=== PATIENT | male | born 1980 | race Caucasian/White ===

== ENCOUNTER 2020-06-16 09:18 | Emergency (ER) | payer MEDICARE, MEDICAID ==
[~2020-06-16] VITALS: Ht 175.3 cm; Wt 83.0 kg
[2020-06-16] MEDS ORDERED: OLANZapine 2.5MG tablet PO STA (10:08)
[2020-06-16] MEDS ORDERED: OLANZAPINE 5 MG TABLET PO STA (10:10)
[2020-06-16 10:37] LABS: BASOPHILS # (AUTO) 0.1 X10'3 (0-0.2); BASOPHILS % (AUTO) 1.2 % (0-1); EOSINOPHILS # (AUTO) 0.1 X10'3 (0-0.9); EOSINOPHILS % (AUTO) 0.9 % (0-6); HEMATOCRIT 45.3 % (42.0-52.0); HEMOGLOBIN 15.7 g/dl (14.0-17.9); LYMPHOCYTES # (AUTO) 1.6 X10'3 (1.1-4.8); LYMPHOCYTES % (AUTO) 20.4 % (21-51); MEAN CORPUSCULAR HEMOGLOBIN 30.3 PG (27.0-31.0); MEAN CORPUSCULAR HGB CONC 34.6 g/dL (33.0-36.5); MEAN CORPUSCULAR VOLUME 87.4 FL (78-98); MEAN PLATELET VOLUME 7.4 FL (7.4-10.4); MONOCYTES # (AUTO) 0.7 X10'3 (0-0.9); MONOCYTES % (AUTO) 9.1 % (2-12); NEUTROPHILS # (AUTO) 5.4 X10'3 (1.8-7.7); NEUTROPHILS % (AUTO) 68.4 % (42-75); PLATELET COUNT 460 X10'3 (140-440); RED BLOOD COUNT 5.18 X10'6 (4.70-6.10); RED CELL DISTRIBUTION WIDTH 12.6 % (11.5-14.5); WHITE BLOOD COUNT 7.9 X10'3 (4.5-11.0)
--- NOTE | 2020-06-16 10:40 | NUR ---
Received patient at 1015. Patient ambulated independently to bed 20 with PCT. Pt presents as paranoid with wide-eyes and hypervigilent. Pt endorses AH and possibly VH. Pt is restless moving around on bed. Pt states "do you hear that?" Desktop Support Associate explaines there are other patients and a T.V that is on. Pt was administered 5mg Olanzpine, will continue to monitor.
[2020-06-16 10:42] LABS: CLARITY,URINE CLEAR (Clear); COLOR,URINE YELLOW (Yellow); GLUCOSE, URINE NEGATIVE (Neg); KETONES,URINE 40 mg/dl (Neg); LEUKOCYTE ESTERASE ,URINE NEGATIVE (Neg); NITRITES, URINE NEGATIVE (Neg); OCCULT BLOOD,URINE NEGATIVE (Neg); PROTEIN,URINE NEGATIVE (Neg); UROBILINOGEN,URINE >=8.0 E.U/dL (0.2-1.0)
[2020-06-16 10:45] LABS: UA COLLECTION TYPE CLN CATCH MIDSTREAM
[2020-06-16 10:46] LABS: URINE AMPHETAMINE SCREEN NEGATIVE (Neg); URINE BARBITUATE SCREEN NEGATIVE (Neg); URINE BENZODIAZEPINES SCREEN NEGATIVE (Neg); URINE CANNABINOID SCREEN POSITIVE (Neg); URINE COCAINE SCREEN NEGATIVE (Neg); URINE METHADONE SCREEN NEGATIVE (Neg); URINE OPIATE SCREEN NEGATIVE (Neg); URINE PHENCYCLIDINE SCREEN NEGATIVE (Neg)
[2020-06-16 10:50] LABS: ALANINE AMINOTRANSFERASE 28 U/L (12-78); ALBUMIN 4.7 G/DL (3.4-5.0); ALBUMIN/GLOBULIN RATIO 1.3 (1.1-1.5); ALKALINE PHOSPHATASE 78 IU/L (46-116); ANION GAP 11 (8-16); ASPARTATE AMINO TRANSFERASE 25 U/L (10-37); BILIRUBIN,TOTAL 1.1 MG/DL (0.1-1.0); BLOOD UREA NITROGEN 9 MG/DL (7-18); BUN/CREATININE RATIO 9.8 (5.4-32.0); CALCIUM 9.6 MG/DL (8.5-10.1); CHLORIDE 101 MMOL/L (99-107); CREATININE 0.92 MG/DL (0.60-1.10); GLUCOSE 115 MG/DL (70-104); SODIUM 140 MMOL/L (135-145); TOTAL CARBON DIOXIDE 28.5 MMOL/L (24-32); TOTAL PROTEIN 8.4 G/DL (6.4-8.2); eGFR > 90 ML/MIN
[2020-06-16 11:19] LABS: ETHANOL < 0.010 GM/DL (0.0-0.010)
--- NOTE | 2020-06-16 11:24 | NUR ---
PACKET FAXED TO [facility]
--- NOTE | 2020-06-16 12:38 | NUR ---
Patient lying on bed, having conversation with self, animated with hands. Pt has been calm with admit process answering questions. Pt has a difficult time tracking time line of events. Pt unsure of the last dose of his medication and what medication he is on. Pt mumbles incoherently under his breathe, but is talking as if to someone. Pt stares off into space and squints his eyes of if looking at something. Pt endores AH "Yes, well I don't know..."what did you say." Pt continues to be hypervigilant about his surrounding. Spoke with patient's mother Luciana ([phone]). Pt's father took Suboxone away about 5 days ago r/t the start of bizarre behaviors and paranoia. Pt was seeing movies on the wall, thinking the T.V was talking to him and thought parents were trying to kill him. Pt also had not been sleeping. Unsure of exact start date of Suboxone.
--- NOTE | 2020-06-16 13:13 | NUR ---
Patient ate 100% of lunch.
[2020-06-16] MEDS ORDERED: SERT-433 PO (13:36)
[2020-06-16] MEDS ORDERED: LITH300C PO (13:36)
[2020-06-16] MEDS ORDERED: HYDR50TA65 PO (13:36)
[2020-06-16] MEDS ORDERED: LURA60TA PO (13:36)
[2020-06-16] MEDS ORDERED: PROP20TA6 PO (13:36)
[2020-06-16] MEDS ORDERED: ATOM25CA6 PO (13:36)
--- NOTE | 2020-06-16 15:16 | NUR ---
Patient sleeping comfortably in supine positioni. Audible snoring sounds, no distress noted. Received order for [place] level.
[2020-06-16] MEDS ORDERED: propranolol 10mg tablet PO PRN (15:35)
[2020-06-16] MEDS ORDERED: hydrOXYzine 25 MG tablet PO PRN (15:35)
--- NOTE | 2020-06-16 17:47 | NUR ---
Patient continues to sleep, no distress noted. Audible breath sounds noted. Respirations even and unlabored. Pt has not slept for 5 days. Olanzipine 5 mg was administered at 1100.
[2020-06-16 18:04] VITALS: BP 135/84
[2020-06-16] MEDS ORDERED: LORazepam 1 MG tablet PO ONE (18:55)
--- NOTE | 2020-06-16 19:08 | NUR ---
Pt mood labile crying frequently. Attempt to leave unit was redirectable. Security called for standby. 2mg x1 ativan PO order obtained and given. Pt sitting quietly in bed at this time.
[2020-06-16] MEDS ORDERED: lurasidone 60mg tablet PO SCH (21:00)
[2020-06-17] MEDS ORDERED: sertraline 50mg tablet PO SCH (08:00)
[2020-06-17] MEDS ORDERED: BUPR1FIL20 SL (11:56)
== END 2020-06-16 20:17 ==
LOC: ER 09:18
DX: R45.851 Suicidal ideations (principal); Z20.822 Contact with and (suspected) exposure to COVID-19; G47.00 Insomnia, unspecified; J45.909 Unspecified asthma, uncomplicated; F15.90 Other stimulant use, unspecified, uncomplicated; Z72.89 Other problems related to lifestyle; Z56.0 Unemployment, unspecified; Z79.899 Other long term (current) drug therapy
CPT/HCPCS: 36415; 80053; 80178; 80305; 80320; 81003; 85025; 87426; 99285; Q0177

== ENCOUNTER 2021-05-04 06:49 | Emergency (ER) | payer BC, MEDICAID ==
[~2021-05-04] VITALS: Ht 175.3 cm; Wt 77.3 kg
[~2021-05-04 06:49] MED LIST: ATI1T PO; EFF37.5XRC PO; HYDR50TA65 PO; LITH300C PO; LURA20TA PO; PROP20TA6 PO; TRAZ-251 PO
--- NOTE | 2021-05-04 08:51 | NUR ---
0945 Contacted kitchen for supplies for soda and sugar enema. Everything else at bedside.
--- NOTE | 2021-05-04 09:23 | NUR ---
Enema started. Pt unable to tolerate more than 250ml, on bedside commode to attempt BM. Will continue until 1000ml inserted.
--- NOTE | 2021-05-04 10:02 | NUR ---
Pt enema complete. Pt on bedside commode. Pt states he feels like he is cleaned out. MD aware.
--- NOTE | 2021-05-04 10:23 | NUR ---
Pt done. Vitals refreshed.
[2021-05-04 11:11] VITALS: BP 113/72
== END 2021-05-04 11:12 | disposition home or self-care (01) ==
LOC: ER 06:50
DX: K59.00 Constipation, unspecified (principal); R11.0 Nausea; R10.13 Epigastric pain; J45.909 Unspecified asthma, uncomplicated; F31.9 Bipolar disorder, unspecified; F20.9 Schizophrenia, unspecified; F15.90 Other stimulant use, unspecified, uncomplicated; F11.90 Opioid use, unspecified, uncomplicated; F19.90 Other psychoactive substance use, unspecified, uncomplicated; Z98.890 Other specified postprocedural states; Z72.89 Other problems related to lifestyle; Z56.0 Unemployment, unspecified; Z79.899 Other long term (current) drug therapy
CPT/HCPCS: 74019; 99284

== ENCOUNTER 2021-07-18 15:15 | Emergency (ER) | payer BC, MEDICAID ==
[~2021-07-18] VITALS: Ht 172.7 cm; Wt 73.7 kg
[2021-07-18 17:30] VITALS: BP 113/79
== END 2021-07-18 17:37 | disposition home or self-care (01) ==
LOC: ER 15:15
DX: J06.9 Acute upper respiratory infection, unspecified (principal); R42 Dizziness and giddiness; J45.909 Unspecified asthma, uncomplicated; F11.90 Opioid use, unspecified, uncomplicated; F15.90 Other stimulant use, unspecified, uncomplicated; Z56.0 Unemployment, unspecified; Z72.89 Other problems related to lifestyle; Z79.899 Other long term (current) drug therapy
CPT/HCPCS: 87502; 87503; 99283

== ENCOUNTER 2021-10-06 02:42 | Emergency (ER) | payer BC, MEDICAID ==
[~2021-10-06] VITALS: Ht 172.7 cm; Wt 72.7 kg
[2021-10-06 03:00] VITALS: BP 117/79
[2021-10-06 03:20] LABS: BASOPHILS # (AUTO) 0.1 X10'3 (0-0.2); BASOPHILS % (AUTO) 1.6 % (0-1); EOSINOPHILS # (AUTO) 0.3 X10'3 (0-0.9); EOSINOPHILS % (AUTO) 6.5 % (0-6); HEMATOCRIT 35.9 % (42.0-52.0); HEMOGLOBIN 12.6 g/dl (14.0-17.9); LYMPHOCYTES # (AUTO) 1.7 X10'3 (1.1-4.8); LYMPHOCYTES % (AUTO) 40.3 % (21-51); MEAN CORPUSCULAR VOLUME 85.7 FL (78-98); MEAN PLATELET VOLUME 7.2 FL (7.4-10.4); MONOCYTES # (AUTO) 0.5 X10'3 (0-0.9); MONOCYTES % (AUTO) 11.9 % (2-12); NEUTROPHILS # (AUTO) 1.7 X10'3 (1.8-7.7); NEUTROPHILS % (AUTO) 39.7 % (42-75); PLATELET COUNT 294 X10'3 (140-440); RED BLOOD COUNT 4.19 X10'6 (4.70-6.10); WHITE BLOOD COUNT 4.2 X10'3 (4.5-11.0)
[2021-10-06 03:35] LABS: ALANINE AMINOTRANSFERASE 22 U/L (12-78); ALBUMIN 3.9 G/DL (3.4-5.0); ALBUMIN/GLOBULIN RATIO 1.2 (1.1-1.5); ALKALINE PHOSPHATASE 92 IU/L (46-116); ANION GAP 6 (8-16); ASPARTATE AMINO TRANSFERASE 22 U/L (10-37); BILIRUBIN,TOTAL 0.4 MG/DL (0.1-1.0); BLOOD UREA NITROGEN 16 MG/DL (7-18); BUN/CREATININE RATIO 16.3 (5.4-32.0); CALCIUM 9.1 MG/DL (8.5-10.1); CHLORIDE 106 MMOL/L (99-107); CREATININE 0.98 MG/DL (0.60-1.10); GLUCOSE 93 MG/DL (70-104); POTASSIUM 4.2 MMOL/L (3.5-5.1); SODIUM 143 MMOL/L (135-145); TOTAL PROTEIN 7.2 G/DL (6.4-8.2); eGFR 84 ML/MIN
[2021-10-06 03:38] LABS: LIPASE 60 U/L (73-393)
== END 2021-10-06 05:38 | disposition left against medical advice (07) ==
LOC: ER 02:43
DX: R07.9 Chest pain, unspecified (principal); Z53.21 Procedure and treatment not carried out due to patient leaving prior to being seen by health care provider
CPT/HCPCS: 71045; 80053; 83690; 84484; 85025

== ENCOUNTER 2021-10-06 13:42 | Emergency (ER) | payer BC, MEDICAID ==
[~2021-10-06] VITALS: Ht 172.7 cm; Wt 73.0 kg
[2021-10-06 13:53] VITALS: BP 127/83
== END 2021-10-06 14:41 | disposition home or self-care (01) ==
LOC: ER 13:43
DX: F41.9 Anxiety disorder, unspecified (principal); R07.89 Other chest pain; J45.909 Unspecified asthma, uncomplicated; F31.9 Bipolar disorder, unspecified; F15.20 Other stimulant dependence, uncomplicated; F11.90 Opioid use, unspecified, uncomplicated; Z87.891 Personal history of nicotine dependence; Z56.0 Unemployment, unspecified
CPT/HCPCS: 93005; 99283

== ENCOUNTER 2022-10-17 11:23 | Emergency (ER) | payer BC, MEDICAID ==
[~2022-10-17] VITALS: Ht 172.7 cm; Wt 75.0 kg
[~2022-10-17 11:23] MED LIST changes: -LURA20TA PO; +LURA20TA8 PO
[2022-10-17 11:33] VITALS: BP 109/79; PULSE 68; RESP 18; TEMP 98.1; O2SAT 100
[2022-10-17] MEDS ORDERED: bisacodyl 5mg tablet.DR PO PRN (12:40)
[2022-10-17] MEDS ORDERED: magnesium citrate 296ml oral solution PO ONE (12:40)
[2022-10-17] MEDS ORDERED: DOCU-148 PO (12:43)
[2022-10-17] MEDS ORDERED: POLY119P2 PO (12:43)
[2022-10-17] MEDS ORDERED: BISA10SU11 RC (12:43)
== END 2022-10-17 13:12 | disposition home or self-care (01) ==
LOC: ER 11:23
DX: K59.00 Constipation, unspecified (principal); J45.909 Unspecified asthma, uncomplicated; F31.9 Bipolar disorder, unspecified; F15.90 Other stimulant use, unspecified, uncomplicated; Z79.899 Other long term (current) drug therapy
CPT/HCPCS: 74018; 99283

== ENCOUNTER 2023-03-17 16:52 | Emergency (ER) | payer BC, MEDICAID ==
[~2023-03-17] VITALS: Ht 175.3 cm; Wt 89.2 kg
[~2023-03-17 16:52] MED LIST changes: +BISA10SU11 RC; +DOCU-148 PO; -EFF37.5XRC PO; +POLY119P2 PO; +VENL37.59 PO
[2023-03-17 17:24] LABS: BASOPHILS % (AUTO) 0.6 % (0-1); EOSINOPHILS # (AUTO) 0.2 X10'3 (0-0.9); EOSINOPHILS % (AUTO) 3.8 % (0-6); HEMATOCRIT 38.4 % (42.0-52.0); LYMPHOCYTES # (AUTO) 2.1 X10'3 (1.1-4.8); LYMPHOCYTES % (AUTO) 35.5 % (21-51); MEAN CORPUSCULAR HEMOGLOBIN 29.6 PG (27.0-31.0); MEAN CORPUSCULAR HGB CONC 33.9 g/dL (33.0-36.5); MEAN CORPUSCULAR VOLUME 87.1 FL (78-98); MEAN PLATELET VOLUME 7.5 FL (7.4-10.4); MONOCYTES # (AUTO) 0.6 X10'3 (0-0.9); MONOCYTES % (AUTO) 10.6 % (2-12); NEUTROPHILS # (AUTO) 2.9 X10'3 (1.8-7.7); NEUTROPHILS % (AUTO) 49.5 % (42-75); PLATELET COUNT 285 X10'3 (140-440); RED CELL DISTRIBUTION WIDTH 12.8 % (11.5-14.5); WHITE BLOOD COUNT 5.9 X10'3 (4.5-11.0)
[2023-03-17 17:31] LABS: ALANINE AMINOTRANSFERASE 33 U/L (12-78); ALBUMIN 3.9 G/DL (3.4-5.0); ALBUMIN/GLOBULIN RATIO 1.1 (1.1-1.5); ALKALINE PHOSPHATASE 91 IU/L (46-116); ANION GAP 7 (8-16); ASPARTATE AMINO TRANSFERASE 32 U/L (10-37); BILIRUBIN,TOTAL 0.3 MG/DL (0.1-1.0); BLOOD UREA NITROGEN 16 MG/DL (7-18); BUN/CREATININE RATIO 16.5 (10.0-20.0); CALCIUM 9.1 MG/DL (8.5-10.1); CHLORIDE 105 MMOL/L (99-107); CREATININE 0.97 MG/DL (0.60-1.10); GLUCOSE 87 MG/DL (70-104); POTASSIUM 3.9 MMOL/L (3.5-5.1); SODIUM 144 MMOL/L (135-145); TOTAL CARBON DIOXIDE 32.4 MMOL/L (24-32); TOTAL PROTEIN 7.3 G/DL (6.4-8.2); eCRCL 99 ML/MIN; eGFR 85 ML/MIN
[2023-03-17 17:41] LABS: PRO BRAIN NATRIURETIC PEPTIDE 139 PG/ML (0-125)
[2023-03-17 19:21] VITALS: BP 119/69; PULSE 71; RESP 16; TEMP 98.1; O2SAT 98
== END 2023-03-17 19:22 | disposition home or self-care (01) ==
LOC: ER 16:53
DX: R07.9 Chest pain, unspecified (principal); F31.9 Bipolar disorder, unspecified; F20.9 Schizophrenia, unspecified; F15.10 Other stimulant abuse, uncomplicated; Z79.899 Other long term (current) drug therapy
CPT/HCPCS: 36415; 71045; 80053; 83880; 84484; 85025; 93005; 99285

== ENCOUNTER 2023-07-16 10:44 | Emergency (ER) | payer BC, MEDICAID ==
[~2023-07-16] VITALS: Ht 172.7 cm; Wt 81.8 kg
[2023-07-16 12:37] VITALS: TEMP 98.1
[2023-07-16 12:43] LABS: BASOPHILS # (AUTO) 0.1 X10'3 (0-0.2); BASOPHILS % (AUTO) 1.1 % (0-1); EOSINOPHILS # (AUTO) 0.3 X10'3 (0-0.9); EOSINOPHILS % (AUTO) 3.6 % (0-6); HEMATOCRIT 39.6 % (42.0-52.0); HEMOGLOBIN 13.5 g/dl (14.0-17.9); LYMPHOCYTES # (AUTO) 1.9 X10'3 (1.1-4.8); MEAN CORPUSCULAR HEMOGLOBIN 30.4 PG (27.0-31.0); MEAN CORPUSCULAR HGB CONC 34.1 g/dL (33.0-36.5); MEAN CORPUSCULAR VOLUME 89.2 FL (78-98); MEAN PLATELET VOLUME 7.5 FL (7.4-10.4); MONOCYTES # (AUTO) 0.7 X10'3 (0-0.9); MONOCYTES % (AUTO) 9.4 % (2-12); NEUTROPHILS # (AUTO) 4.5 X10'3 (1.8-7.7); NEUTROPHILS % (AUTO) 60.9 % (42-75); PLATELET COUNT 351 X10'3 (140-440); RED BLOOD COUNT 4.44 X10'6 (4.70-6.10); RED CELL DISTRIBUTION WIDTH 13.4 % (11.5-14.5); WHITE BLOOD COUNT 7.4 X10'3 (4.5-11.0)
[2023-07-16 13:00] LABS: ALBUMIN 4.2 G/DL (3.4-5.0); ANION GAP 4 (8-16); BLOOD UREA NITROGEN 15 MG/DL (7-18); BUN/CREATININE RATIO 14.7 (10.0-20.0); CALCIUM 9.6 MG/DL (8.5-10.1); CHLORIDE 102 MMOL/L (99-107); CREATININE 1.02 MG/DL (0.60-1.10); GLUCOSE 87 MG/DL (70-104); POTASSIUM 4.4 MMOL/L (3.5-5.1); PRO BRAIN NATRIURETIC PEPTIDE 175 PG/ML (0-125); SODIUM 138 MMOL/L (135-145); TOTAL CARBON DIOXIDE 32.3 MMOL/L (24-32); eCRCL 91 ML/MIN; eGFR 80 ML/MIN
[2023-07-16 13:43] VITALS: BP 125/65; PULSE 55; RESP 11; O2SAT 98
== END 2023-07-16 13:48 | disposition home or self-care (01) ==
LOC: ER 10:44
DX: R07.89 Other chest pain (principal); J45.909 Unspecified asthma, uncomplicated; F15.90 Other stimulant use, unspecified, uncomplicated; Z79.899 Other long term (current) drug therapy
CPT/HCPCS: 36415; 71045; 80048; 83880; 84484; 85025; 93005; 99285

== ENCOUNTER 2024-02-10 16:05 | Emergency (ER) | payer BC, MEDICAID ==
[~2024-02-10] VITALS: Ht 175.3 cm; Wt 79.5 kg
[2024-02-10 19:02] LABS: BASOPHILS # (AUTO) 0.1 X10'3 (0-0.2); BASOPHILS % (AUTO) 0.9 % (0-1); EOSINOPHILS # (AUTO) 0.3 X10'3 (0-0.9); EOSINOPHILS % (AUTO) 4.6 % (0-6); HEMATOCRIT 38.7 % (42.0-52.0); HEMOGLOBIN 13.5 g/dl (14.0-17.9); LYMPHOCYTES # (AUTO) 1.9 X10'3 (1.1-4.8); MEAN CORPUSCULAR HEMOGLOBIN 30.6 PG (27.0-31.0); MEAN CORPUSCULAR VOLUME 87.5 FL (78-98); MEAN PLATELET VOLUME 7.3 FL (7.4-10.4); MONOCYTES # (AUTO) 0.6 X10'3 (0-0.9); MONOCYTES % (AUTO) 9.5 % (2-12); NEUTROPHILS # (AUTO) 3.7 X10'3 (1.8-7.7); PLATELET COUNT 336 X10'3 (140-440); RED BLOOD COUNT 4.42 X10'6 (4.70-6.10); RED CELL DISTRIBUTION WIDTH 13.5 % (11.5-14.5); WHITE BLOOD COUNT 6.5 X10'3 (4.5-11.0)
[2024-02-10 19:21] LABS: ALBUMIN 3.9 G/DL (3.4-5.0); ANION GAP 4 (8-16); BLOOD UREA NITROGEN 17 MG/DL (7-18); BUN/CREATININE RATIO 15.7 (10.0-20.0); CALCIUM 9.1 MG/DL (8.5-10.1); CHLORIDE 104 MMOL/L (99-107); CREATININE 1.08 MG/DL (0.60-1.10); GLUCOSE 107 MG/DL (70-104); POTASSIUM 4.2 MMOL/L (3.5-5.1); PRO BRAIN NATRIURETIC PEPTIDE 122 PG/ML (0-125); SODIUM 140 MMOL/L (135-145); TOTAL CARBON DIOXIDE 32.3 MMOL/L (24-32); eCRCL 88 ML/MIN; eGFR 75 ML/MIN
[2024-02-10] MEDS ORDERED: ALBU8HFA INH (19:40)
[2024-02-10] MEDS ORDERED: BECL7.3A INH (19:40)
[2024-02-10 19:58] VITALS: BP 116/69; PULSE 67; RESP 16; TEMP 98; O2SAT 99
== END 2024-02-10 19:43 | disposition home or self-care (01) ==
LOC: ER 16:06
DX: R06.01 Orthopnea (principal); R06.02 Shortness of breath; J45.909 Unspecified asthma, uncomplicated; F31.9 Bipolar disorder, unspecified; F20.9 Schizophrenia, unspecified; F15.90 Other stimulant use, unspecified, uncomplicated; F11.90 Opioid use, unspecified, uncomplicated; F19.90 Other psychoactive substance use, unspecified, uncomplicated; Z56.0 Unemployment, unspecified; Z98.890 Other specified postprocedural states; Z79.899 Other long term (current) drug therapy
CPT/HCPCS: 36415; 71045; 80048; 83880; 85025; 93005; 99285